=== PATIENT | female | born 1970 | race Caucasian/White ===

== ENCOUNTER 2022-06-02 11:47 | Outpatient (CLI) | payer OTHER, SELFPAY ==
[2022-06-02 14:03] LABS: Free T4 Free Thyroxine 0.93 ng/dL (0.82-1.77); Thyroid Stimulating Hormone 1.84 uIU/mL (0.27-4.20)
[2022-06-03 17:00] LABS: Thyroid Peroxidase Antobodies 118 IU/mL (<9)
[2022-06-03 21:44] LABS: T3 Total 107 ng/dL (76-181)
== END 2022-06-02 11:48 | disposition home or self-care (01) ==
PROVIDERS: Visit Provider Internal Medicine
DX: E06.3 Autoimmune thyroiditis (principal)
CPT/HCPCS: 36415; 84439; 84443; 84480; 86376

== ENCOUNTER 2023-02-16 11:35 | Outpatient (CLI) | payer OTHER, SELFPAY ==
--- NOTE | 2023-02-16 11:41 | MM_ITS ---
WS: [id number] Bilateral mammograms, tomosynthesis, 02/16/2023 Clinical Data: SCREENING Comparison: 01/07/2018 Findings: The breast parenchymal pattern shows fibroglandular tissue. No spiculated masses nor clustered calcif ications are seen. There are no secondary signs of carcinoma. There are bilateral axillary lymph node s. Impression: 1. Negative bilateral mammogram is unchanged. 2. Recommend yearly screening mammograms. MM/[place] [id number] BI-RADS: 1 Follow-up: Yearly screening mammograms. The [facility] was used.
== END 2023-02-16 11:36 | disposition home or self-care (01) ==
LOC: RAD 11:35
PROVIDERS: Visit Provider Obstetrics & Gynecology
DX: Z12.31 Encounter for screening mammogram for malignant neoplasm of breast (principal)
CPT/HCPCS: 77063; 77067